=== PATIENT | male | born 1945 | race Hispanic/Latino ===

== ENCOUNTER 2017-01-11 11:08 | Emergency (ER) | payer MEDICARE ==
[2017-01-11 11:17] VITALS: TEMP 98
--- NOTE | 2017-01-11 12:45 | RAD ---
PROCEDURE: Right hand dated 01/11/2017 HISTORY: Right hand pain and swelling after fall. COMPARISON: Correlation made with concurrent radiographs of the right wrist FINDINGS: No definitive radiographic evidence of acute displaced fracture nor dislocation. The osseous structures intact. Minor degenerative changes of the DIP as well as PIP and to a lesser degree the MCP joints. There is a tiny bony density seen within the soft tissues adjacent to the distal tip of the radial styloid which could represent some old posttraumatic mineralization. There are no radiopaque foreign bodies. There may be some mild dorsal soft tissue swelling extending proximally to the level of the wrist. Impression: No definitive radiographic evidence of acute displaced fracture nor dislocation. . Mild soft tissue swelling as above Minor DJD
--- NOTE | 2017-01-11 12:49 | RAD ---
PROCEDURE: Right wrist dated 01/11/2017 HISTORY: Right hand pain and swelling after fall. COMPARISON: Correlation made with concurrent radiographs of the right hand FINDINGS: No definitive radiographic evidence of acute displaced fracture nor dislocation. The osseous structures intact. Re- demonstrated is a tiny bony density seen within the soft tissues adjacent to the distal tip of the radial styloid which could represent some old posttraumatic mineralization. There are no radiopaque foreign bodies. There may be some mild dorsal soft tissue swelling extending proximally to the level of the wrist. Impression: No definitive radiographic evidence of acute displaced fracture nor dislocation. . Mild soft tissue swelling as above Minor DJD if symptoms persist or occult fracture suspected clinically recommend repeat radiographs in 5-10 days as most fractures should become radiographically evident in this timeframe.
--- NOTE | 2017-01-11 12:55 | C.PDOC ---
History Of Present Illness 71 y/o male, with history of autism, brought in by family member for evaluation of right hand swelling and bruising. As per family member & patient, he fell and landed onto his right hand 2 days ago (details vague). He denies any other injury, and has no other physical complaints at this time. Time Seen by Provider: 01/11/17 11:18 Chief Complaint (Nursing): Finger,Hand,&Wrist History Per: Patient, Family History/Exam Limitations: no limitations Onset/Duration Of Symptoms: Days (2) Current Symptoms Are (Timing): Still Present Quality: "Pain" Severity: Moderate Recent travel outside of the [place]: No Additional History Per: Family Past Medical History Reviewed: Historical Data, Nursing Documentation, Vital Signs Vital Signs: Last Vital Signs Temp 98 F 01/11/17 11:17 Pulse 78 01/11/17 13:02 Resp 18 01/11/17 13:02 BP 126/75 01/11/17 13:02 Pulse Ox 98 01/11/17 14:21 - Medical History PMH: Seizures Family History: States: No Known Family Hx - Social History Hx Alcohol Use: No Hx Substance Use: No - Immunization History Hx Tetanus Toxoid Vaccination: Yes Hx Influenza Vaccination: Yes Hx Pneumococcal Vaccination: No Review Of Systems Except As Marked, All Systems Reviewed And Found Negative. Constitutional: Negative for: Fever, Chills Skin: Positive for: Bruising (swelling and bruising to right hand) Neurological: Negative for: Weakness, Numbness, Headache, Dizziness Physical Exam - Physical Exam Appears: Well, Non-toxic, No Acute Distress Skin: Normal Color, Warm, Dry, Ecchymosis (scattered ecchymosis to right hand; no erythema, or warmth) Head: Atraumatic, Normacephalic Eye(s): bilateral: Normal Inspection Chest: Symmetrical Cardiovascular: Rhythm Regular Respiratory: Normal Breath Sounds, No Rales, No Rhonchi, No Wheezing Extremity: Normal ROM (FROM of right hand digits and wrist), Tenderness (mild diffuse tenderness to palpatyion of right hand, no focal tenderness), Capillary Refill (< 2sec all digits ), No Deformity, Swelling (moderate swelling to right hand) Extremity: Bilateral: Normal ROM (at wrist and digits ) Pulses: Left Radial: Normal, Right Radial: Normal Neurological/Psych: Oriented x3, Normal Sensation Gait: Steady ED Course And Treatment O2 Sat by Pulse Oximetry: 98 (on RA) Pulse Ox Interpretation: Normal - Other Rad Right wrist x-ray X-Ray: Viewed By Me, Read By Radiologist Interpretation: FINDINGS: No definitive radiographic evidence of acute displaced fracture nor dislocation. The osseous structures intact. Re- demonstrated is a tiny bony density seen within the soft tissues adjacent to the distal tip of the radial styloid which could represent some old posttraumatic mineralization. There are no radiopaque foreign bodies. There may be some mild dorsal soft tissue swelling extending proximally to the level of the wrist. Impression: No definitive radiographic evidence of acute displaced fracture nor dislocation. . Mild soft tissue swelling as above Minor DJD if symptoms persist or occult fracture suspected clinically recommend repeat radiographs in 5-10 days as most fractures should become radiographically evident in this timeframe. Right hand x-ray X-Ray: Viewed By Me, Read By Radiologist Interpretation: FINDINGS: No definitive radiographic evidence of acute displaced fracture nor dislocation. The osseous structures intact. Minor degenerative changes of the DIP as well as PIP and to a lesser degree the MCP joints. There is a tiny bony density seen within the soft tissues adjacent to the distal tip of the radial styloid which could represent some old posttraumatic mineralization. There are no radiopaque foreign bodies. There may be some mild dorsal soft tissue swelling extending proximally to the level of the wrist. Impression: No definitive radiographic evidence of acute displaced fracture nor dislocation. Mild soft tissue swelling as above Minor DJD Progress Note: Right hand/right wrist x-ray ordered and reviewed. PO Tylenol ordered, however patient refused. Removable wrist splint applied by chemical waste management technician and checked by me. Patient discharged home with family, instructed to follow up with orthopedics within 1 week. Rx for Naprosyn given. They understand he should be brought back to ED if he has any other concerning symptoms. Disposition Counseled Patient/Family Regarding: Studies Performed, Diagnosis, Need For Followup, Rx Given - Disposition Referrals: Alexis Lynn [Primary Care Provider] - Lois Awad MD [Staff Provider] - Disposition: HOME/ ROUTINE Disposition Time: 13:00 Condition: STABLE Additional Instructions: FOLLOW UP WITH YOUR DOCTOR IN 1-2 DAYS, AND WITH HAND SURGEON WITHIN 1 WEEK USE PAIN MEDICATION NEEDED RETURN TO ER IF SYMPTOMS WORSEN Prescriptions: Naproxen [Naprosyn Tab] 375 mg PO BID PRN #20 tab PRN Reason: pain Instructions: Hand Sprain (ED) Print Language: SPANISH - POA Present On Arrival: Falls Or Trauma - Clinical Impression Clinical Impression: Sprain of hand, right, Contusion, hand - Scribe Statement The provider has reviewed the documentation as recorded by the Quinibe Robert Macedo All medical record entries made by the Quinibtrae were at my direction and personally dictated by me. I have reviewed the chart and agree that the record accurately reflects my personal performance of the history, physical exam, medical decision making, and the department course for this patient. I have also personally directed, reviewed, and agree with the discharge instructions and disposition.
[2017-01-11 13:04] VITALS: BP 126/75; PULSE 78; RESP 18
[2017-01-11 14:10] VITALS: O2SAT 98
== END 2017-01-11 13:05 | disposition home or self-care (01) ==
LOC: C.ER 11:08 → SUPCPDRO 11:08 → C.ER 13:05
DX: S60.221A Contusion of right hand, initial encounter (principal); S63.91XA Sprain of unspecified part of right wrist and hand, initial encounter; W19.XXXA Unspecified fall, initial encounter; Y92.9 Unspecified place or not applicable

== ENCOUNTER 2017-10-19 20:51 | Emergency (ER) | payer MEDICARE ==
[2017-10-19 21:03] VITALS: BP 134/73; PULSE 84; RESP 20; TEMP 97.5; O2SAT 98
--- NOTE | 2017-10-19 21:27 | C.PDOC ---
History Of Present Illness 72 yo male w/PMHx of seizure ds, come in accompanied by platform worker for evaluation of left hand/wrist and forearm pain, swelling, bruising developed since yesterday after sustained mechanical fall. As per pt, "tripped and fell down at home trying to break fall with left hand" . Otherwise, pt denies seizure activity, denies head injury, LOC, syncope, headache, dizziness, visual changes, focal deficits, neck pain, CP, SOB, dyspnea, abd. pain, N/V, back pain , denies sensory or vascular deficit to B/L Ues and LEs. Ambulate to Ed with baseline gait, no t in nay apparent distress. Time Seen by Provider: 10/19/17 21:09 Chief Complaint (Nursing): Upper Extremity Problem/Injury History Per: Patient History/Exam Limitations: no limitations Onset/Duration Of Symptoms: Hrs Current Symptoms Are (Timing): Still Present Quality: "Pain" Additional History Per: Patient Past Medical History Reviewed: Historical Data, Nursing Documentation, Vital Signs Vital Signs: Last Vital Signs Temp 97.5 F L 10/19/17 21:00 Pulse 84 10/19/17 21:00 Resp 20 10/19/17 22:50 BP 134/73 10/19/17 21:00 Pulse Ox 98 10/19/17 23:33 - Medical History PMH: Seizures Family History: States: Unknown Family Hx - Social History Hx Alcohol Use: No Hx Substance Use: No - Immunization History Hx Tetanus Toxoid Vaccination: Yes Hx Influenza Vaccination: Yes Hx Pneumococcal Vaccination: No Review Of Systems Eyes: Negative for: Vision Change Cardiovascular: Negative for: Chest Pain Respiratory: Negative for: Shortness of Breath, Other (dyspnea ) Gastrointestinal: Negative for: Nausea, Vomiting, Abdominal Pain Musculoskeletal: Positive for: Other (left hand/wrist and left forearm pain ). Negative for: Back Pain Neurological: Negative for: Weakness, Numbness, Seizures Physical Exam - Physical Exam Appears: Well, Non-toxic, No Acute Distress Skin: Normal Color, Warm, Dry Head: Atraumatic, Normacephalic Eye(s): bilateral: PERRL Nose: No Deformity, No Tenderness Oral Mucosa: Moist, No Drooling, No Trismus Neck: Trachea Midline, No Midline Cervical Tenderness, No Paracervical Tenderness, No Step Off Deformity, Supple Chest: Symmetrical, No Deformity, No Tenderness Gastrointestinal/Abdominal: Soft, No Tenderness Back: No Vertebral Tenderness, No Paraspinal Tenderness Extremity: Normal ROM, Tenderness (diffuse from dorsal aspect left hand extend t o left wrist and forearm), Capillary Refill (less than 2sec to left hand), Deformity (Left forearm), Swelling (diffuse left hand/wrist/forearm with diffuse ecchymoses.) Neurological/Psych: Oriented x3, Normal Speech, Normal Motor, Normal Sensation, Normal Reflexes ED Course And Treatment O2 Sat by Pulse Oximetry: 98 (on RA) Pulse Ox Interpretation: Normal - Other Rad Left hand and forearm X-Ray: Interpreted by Me, Viewed By Me Interpretation: (+) distal radial and ulnar fx, displaced Progress Note: Left forearm and left hand XR ordered and reviewed. Tylenol PO administered. On re-eval, pt is afebrile, hemodynamicaly stable. NOn-toxic. AMbulatory in ED with stable gait. Head: AT/NC. Neck: (-) midline tenderness. LUE: (+) diffuse Left dorsal hand/wristr and forearm tenderness with edema. NO neurovascular deficits, no open wounds. Neurologicaly intact. Imaging review (+) displaced distal radial/ulnar fx. Splint applied, analgesic given. Results review and discussed with pt and caregiver. Patient advised and ref. to f/u with ortho in 1-2 days for re-eval. return to ED if any worsening or new chnages. Orthopedic Time Performed: 22:00 Time Out: Side verified, Site verified, Patient ID confirmed Procedure: Splint Type: Volar Location: Left, Wrist Consent obtained: Verbal Performed by: Mid-level Provider Diagnosis: Fracture Type: Displaced, Angulated Location: Left, Distal Bone: Radius, Ulna Disposition Counseled Patient/Family Regarding: Studies Performed, Diagnosis, Need For Followup, Rx Given - Disposition Referrals: Ruddy Smith MD [Staff Provider] - Mesfin Duncan III, MD [Staff Provider] - Disposition: HOME/ ROUTINE Disposition Time: 22:02 Condition: STABLE Additional Instructions: SPlint, sling Follow up with Orthopedist in 1-2 days for re-evaluation. return to ED if any worsening or new changes. Prescriptions: traMADol [Ultram] 50 mg PO TID #14 tab Instructions: Wrist Fracture (DC) Forms: [employer] (Nauruan) - Clinical Impression Clinical Impression: Wrist fracture - PA / INDEPENDENT CONTRACTOR / Resident Statement MD/DO has reviewed & agrees with the documentation as recorded. - Scribe Statement The provider has reviewed the documentation as recorded by the Scribe All medical record entries made by the Scribe were at my direction and personally dictated by me. I have reviewed the chart and agree that the record accurately reflects my personal performance of the history, physical exam, medical decision making, and the department course for this patient. I have also personally directed, reviewed, and agree with the discharge instructions and disposition.
--- NOTE | 2017-10-20 11:22 | RAD ---
PROCEDURE: Left Hand Radiographs. HISTORY: Injury COMPARISON: Correlation made with concurrent radiographs of the left forearm. FINDINGS: BONES: Comminuted fracture of the distal left radius with volar angulation of the distal fragments. There is also a displaced fracture of the distal ulna styloid. JOINTS: Mild multi articular degenerative osteoarthritis SOFT TISSUES: Normal. OTHER FINDINGS: None. IMPRESSION: Comminuted displaced fracture distal left radius with volar angulation of the distal fragments. There is also displaced fracture of the distal ulna styloid
--- NOTE | 2017-10-20 11:24 | RAD ---
PROCEDURE: Radiographs of the Left Forearm HISTORY: Injury COMPARISON: Comparison made with concurrent radiographs of the left hand TECHNIQUE: Frontal and lateral views obtained. FINDINGS: BONES: Comminuted fracture of the distal radius with volar angulation of the distal fragment. There is also a mildly displaced fracture of the distal ulna styloid JOINT SPACES: . Mild multi articular degenerative osteoarthritis OTHER FINDINGS: None. IMPRESSION: Comminuted fracture of the distal radius with volar angulation of the distal fragment. There is also a mildly displaced fracture of the distal ulna styloid
== END 2017-10-19 22:50 | disposition home or self-care (01) ==
LOC: C.ER 20:51
DX: S52.502A Unspecified fracture of the lower end of left radius, initial encounter for closed fracture (principal); S52.602A Unspecified fracture of lower end of left ulna, initial encounter for closed fracture; W01.0XXA Fall on same level from slipping, tripping and stumbling without subsequent striking against object, initial encounter; Y92.009 Unspecified place in unspecified non-institutional (private) residence as the place of occurrence of the external cause

== ENCOUNTER 2018-01-18 15:50 | Inpatient (IN) | payer MEDICARE ==
--- NOTE | 2018-01-18 16:22 | C.PDOC ---
History Of Present Illness 72 year old male brought to the ER by brother for an evaluation of left arm injury sustained yesterday when he tripped and fell at home around 3pm. Per family he had a previous fracture in the same arm a couple months ago and he had a cast placed. He denies any numbness, weakness, or tingling. - HPI Time Seen by Provider: 01/18/18 16:03 Chief Complaint (Nursing): Trauma History Per: Patient, Family (Brother) History/Exam Limitations: physical impairment (mentally challenged) Onset/Duration Of Symptoms: Days Injury Occurred (Timing): Days Ago: (1) Location Of Injury: Left: Forearm, Wrist - Fall Fall:Prior To Injury: Tripped Past Medical History Reviewed: Historical Data, Nursing Documentation, Vital Signs Vital Signs: Last Vital Signs Temp 98 F 01/18/18 16:03 Pulse 93 H 01/18/18 16:03 Resp 18 01/18/18 16:03 BP 122/67 01/18/18 16:03 Pulse Ox 100 01/18/18 18:16 - Medical History PMH: Seizures Other PMH: mentally challenged Other Surgeries: Hx of surgeries Family History: States: No Known Family Hx - Social History Hx Alcohol Use: No Hx Substance Use: No - Immunization History Hx Tetanus Toxoid Vaccination: Yes Hx Influenza Vaccination: Yes Hx Pneumococcal Vaccination: No Review Of Systems Musculoskeletal: Positive for: Arm Pain (Left distal forearm/wrist) Neurological: Negative for: Weakness, Numbness Physical Exam - Physical Exam Appears: Non-toxic, No Acute Distress Skin: Warm, Dry, Ecchymosis (left wrist and hand), Other (2 round superficial abrasions to distal dorsal foream with surrounding erythema) Head: Atraumatic, Normacephalic Eye(s): bilateral: Normal Inspection Nose: Normal Oral Mucosa: Moist Neck: Normal ROM, Supple Chest: Symmetrical Cardiovascular: Rhythm Regular, No Murmur Respiratory: Normal Breath Sounds Extremity: Tenderness (Left wrist and distal forearm ), Capillary Refill (<2 seconds), Deformity (Left wrist and distal forearm ), Swelling (Left wrist and distal forearm ) Extremity: Right: Atraumatic, Normal Color And Temperature, Normal ROM Pulses: Left Radial: Normal, Right Radial: Normal Neurological/Psych: Oriented x3, Normal Speech, Normal Motor, Normal Sensation Gait: Steady ED Course And Treatment - Laboratory Results Result Diagrams: 01/18/18 17:44 01/18/18 17:44 ECG: Interpreted By Me, Viewed By Me ECG Rhythm: Sinus Rhythm ECG Interpretation: No Acute Changes Rate From EC (LVH) O2 Sat by Pulse Oximetry: 100 (RA) Pulse Ox Interpretation: Normal Medical Decision Making Medical Decision Making: Impression: Left wrist/distal forearm injury Orders - Tylenol - XR left forearm - XR left wrist Progress: [address] Cheung who previously took care of his fracture in September 2017. With patient's permission sent images of Xray. As per Dr Cheung recommended closed reduction, splint and can follow up in his office next week. I informed him that the arm is swollen, and fracture is complicated by previous fracture, swelling, and possible infection at wound site. He then stated he is not available this weekend, out of town and to consult ortho rn care transition. Case was discussed with DR Stewart ER attending who also examined patient at bedside. He recommended contacting ortho rn care transition, he will consult himself. 1715 Dr Stewart spoke with ortho rn care transition Dr Duncan, who requests patient be admitted have pre-op labs for medical clearance and CT of extremity. The plan is for OR and surgical repair in 1 or 2 days after clearance. Patient is very swollen and the family prefers patient have just splint applied until seen by ortho. Orthoglass volar splint applied by DEEPA. Arm sling applied by KEITH Aguirre. Orders placed for labs, EKG, CXR and CT of extremity. [address] Smith his PMD to discuss the case and accepted patient to his service. Ortho consult Dr Duncan. 181 Dr Smith in ED to see patient, and accepted patient to his service. Disposition - Disposition Disposition: HOSPITALIZED Disposition Time: 17:57 Condition: STABLE - POA Present On Arrival: Falls Or Trauma - Clinical Impression Clinical Impression: Radius and ulna distal fracture - PA / SHACTOR / Resident Statement MD/DO has reviewed & agrees with the documentation as recorded. - Scribe Statement The provider has reviewed the documentation as recorded by the Qiunibe Sandra Frazier All medical record entries made by the Scribe were at my direction and personally dictated by me. I have reviewed the chart and agree that the record accurately reflects my personal performance of the history, physical exam, medical decision making, and the department course for this patient. I have also personally directed, reviewed, and agree with the discharge instructions and disposition. Decision To Admit - Pt Status Changed To: Hospital Disposition Of: Inpatient - Admit Certification Admit to Inpatient:: After my assessment, the patient will require hospitalization for at least two midnights. This is because of the severity of symptoms shown, intensity of services needed, and/or the medical risk in this patient being treated as an outpatient. - InPatient: Physician Admission Certification: I certify that this patient requires 2 or more midnights of care for the following reason:: Patient with acute and displaced fracture of the distal ulna and radius, complicated by prior fracture to same wrist 3 months prior. Patient will need surgical repair. Patient is very swollen and reduction not feasible. Plan is to admit to medical service. Patient will require pre-op labs and medical clearance. Ice and elevation of extremity. Analgesics as needed. - . Bed Request Type: Regular Admitting Physician: Ruddy Smith Patient Diagnosis: Radius and ulna distal fracture
[2018-01-18 17:48] LABS: BASO # 0.1 K/uL (0.0-0.2); BASO % 0.6 % (0.0-2.0); EOS # 0.1 K/uL (0.0-0.7); EOS % 0.9 % (0.0-4.0); HEMOGLOBIN 13.3 g/dL (12.0-18.0); LYMPH % 11.1 % (20.0-40.0); MEAN CORPUSCULAR HEMOGLOBIN 30.9 pg (27.0-31.0); MEAN CORPUSCULAR HGB CONC 33.5 g/dL (33.0-37.0); MEAN PLATELET VOLUME 6.9 fL (7.2-11.7); MONO # 1.4 K/uL (0.0-0.8); MONO % 16.3 % (0.0-10.0); NEUT # 6.3 K/uL (1.8-7.0); NEUT % 71.1 % (50.0-75.0); RBC 4.3 Mil/uL (4.40-5.90); RED CELL DISTRIBUTION WIDTH 13.9 % (11.5-14.5); WHITE BLOOD COUNT 8.8 K/uL (4.8-10.8)
[2018-01-18] MEDS ORDERED: Morphine 4 MG/ML VIAL ONE (17:49)
[2018-01-18] MEDS ORDERED: Sodium Chloride 0.9% 1,000 ML IV ONE (17:54)
[2018-01-18 18:07] LABS: ALB/GLOB RATIO 1.6 (1.0-2.1); ALBUMIN 4.4 g/dL (3.5-5.0); ALT/SGPT 26 U/L (21-72); AST/SGOT 23 U/L (17-59); BLOOD UREA NITROGEN 14 mg/dL (9-20); CALCIUM 9.6 mg/dl (8.6-10.4); GFR AFRICAN-AMERICAN > 60; GFR NON-AFRICAN AMERICAN > 60; INR 1.2; PROTHROMBIN TIME 12.9 SECONDS (9.7-12.2)
[2018-01-18] MEDS ORDERED: Sodium Chloride 0.9% 1,000 ML ONE (18:07)
--- NOTE | 2018-01-18 18:15 | RAD ---
Date of service: 01/18/2018 PROCEDURE: Radiographs of the Left Forearm HISTORY: s.p fall COMPARISON: None available. TECHNIQUE: Frontal and lateral views obtained. FINDINGS: BONES: There are acute comminuted and displaced fractures at the distal left radius and ulna associated with volar angulation of the distal portion of the bone. JOINT SPACES: Unremarkable. OTHER FINDINGS: None. IMPRESSION: Acute comminuted and displaced fractures at the distal left radius and ulnar bones.
--- NOTE | 2018-01-18 18:17 | RAD ---
Date of service: 01/18/2018 PROCEDURE: Left Wrist Radiographs. HISTORY: s.p fall COMPARISON: None. FINDINGS: BONES: Acute comminuted and displaced fracture at the distal left radius and ulna. No evidence of carpal bone fracture. JOINTS: Degenerative changes. . No dislocation. SOFT TISSUES: Normal. OTHER FINDINGS: None. IMPRESSION: Acute displaced fracture at the distal left radius and ulnar bone without evidence of dislocation at the radiocarpal joint.
--- NOTE | 2018-01-18 18:22 | RAD ---
Date of service: 01/18/2018 PROCEDURE: CHEST RADIOGRAPH, 1 VIEW HISTORY: SOB COMPARISON: None available. FINDINGS: LUNGS: Emphysematous changes. No evidence of focal infiltrate or consolidation. PLEURA: No pneumothorax or pleural fluid seen. CARDIOVASCULAR: Normal. OSSEOUS STRUCTURES: No significant abnormalities. VISUALIZED UPPER ABDOMEN: Normal. OTHER FINDINGS: None. IMPRESSION: No active disease. Emphysematous changes.
--- NOTE | 2018-01-18 23:52 | CP.PCM.HP ---
History of Present Illness - History of Present Illness History of Present Illness: 72 yo male brought by his brother to the ED at [facility] because of a swollen and tender left wrist from a fall had sustained yesterday. An XR of the left wrist discloses comminuted and displaced fractures of the distal radius and ulna. According to the family, the patient felt 3 months ago and sustained a left wrist fracture which was treated with a cast. There is no palpitation, dizziness, chest pain, no LOC. 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 He has not had seizures for a very long time. He is scheduled for surgery on Saturday by Dr Duncan. Present on Admission - Present on Admission Any Indicators Present on Admission: No Review of Systems - Musculoskeletal Additional comments: Swelling and tender left wrist. Past Patient History - Past Medical History & Family History Past Medical History?: Yes - Past Social History Smoking Status: Never Smoked Alcohol: None Drugs: Denies Home Situation {Lives}: With Family Domestic Violence: Negative - CARDIAC Hx Cardiac Disorders: No - PULMONARY Hx Respiratory Disorders: No - NEUROLOGICAL Hx Neurological Disorder: Yes Hx Seizures: Yes - HEENT Hx HEENT Problems: No - RENAL Hx Chronic Kidney Disease: No - ENDOCRINE/METABOLIC Hx Endocrine Disorders: No - HEMATOLOGICAL/ONCOLOGICAL Hx Blood Disorders: No - INTEGUMENTARY Hx Dermatological Problems: No - MUSCULOSKELETAL/RHEUMATOLOGICAL Hx Musculoskeletal Disorders: No Hx Falls: Yes Hx Fractures: Yes - GASTROINTESTINAL Hx Gastrointestinal Disorders: No - GENITOURINARY/GYNECOLOGICAL Hx Genitourinary Disorders: No - PSYCHIATRIC Hx Substance Use: No - SURGICAL HISTORY Hx Surgeries: Yes Other/Comment: left arm fx - ANESTHESIA Hx Anesthesia: No Hx Anesthesia Reactions: No Hx Malignant Hyperthermia: No Has any member of the family had a problem w/ anesthesia?: No Meds Allergies/Adverse Reactions: Allergies Allergy/AdvReac Type Severity Reaction Status Date / Time No Known Allergies Allergy Verified 10/19/17 21:02 Physical Exam - Constitutional Appears: Well, No Acute Distress - Head Exam Head Exam: NORMAL INSPECTION - Eye Exam Eye Exam: Normal appearance Pupil Exam: NORMAL ACCOMODATION - ENT Exam ENT Exam: Normal Exam - Neck Exam Neck exam: Positive for: Normal Inspection - Respiratory Exam Respiratory Exam: Clear to Auscultation Bilateral, NORMAL BREATHING PATTERN - Cardiovascular Exam Cardiovascular Exam: REGULAR RHYTHM - GI/Abdominal Exam GI & Abdominal Exam: Normal Bowel Sounds, Soft - Rectal Exam Rectal Exam: Deferred - Exam Exam: NORMAL INSPECTION - Extremities Exam Additional comments: Swollen and tender left wrist. - Back Exam Back exam: NORMAL INSPECTION - Neurological Exam Neurological exam: Alert, Normal Gait, Oriented x3 - Psychiatric Exam Psychiatric exam: Anxious - Skin Skin Exam: Dry, Intact, Warm Results - Vital Signs Recent Vital Signs: Last Vital Signs Temp 97.9 F 01/18/18 19:33 Pulse 82 01/18/18 19:33 Resp 18 01/18/18 19:33 BP 135/72 01/18/18 19:33 Pulse Ox 97 01/18/18 19:33 - Labs Result Diagrams: 01/18/18 17:44 01/18/18 17:44 Labs: Laboratory Results - last 24 hr 01/18/18 01/18/18 01/18/18 17:44 17:44 17:44 WBC 8.8 RBC 4.30 L Hgb 13.3 Hct 39.6 MCV 92.0 MCH 30.9 MCHC 33.5 RDW 13.9 Plt Count 227 MPV 6.9 L Neut % (Auto) 71.1 Lymph % (Auto) 11.1 L Kings % (Auto) 16.3 H Eos % (Auto) 0.9 Baso % (Auto) 0.6 Neut # (Auto) 6.3 Lymph # (Auto) 1.0 Kings # (Auto) 1.4 H Eos # (Auto) 0.1 Baso # (Auto) 0.1 PT 12.9 H INR 1.2 APTT 29 Sodium 142 Potassium 4.0 Chloride 102 Carbon Dioxide 29 Anion Gap 15 BUN 14 Creatinine 0.7 L Est GFR ( Amer) > 60 Est GFR (Non-Af Amer) > 60 Random Glucose 119 H Calcium 9.6 Total Bilirubin 1.7 H AST 23 ALT 26 Alkaline Phosphatase 92 Total Protein 7.1 Albumin 4.4 Globulin 2.7 Albumin/Globulin Ratio 1.6 Blood Type Antibody Screen 01/18/18 17:44 WBC RBC Hgb Hct MCV MCH MCHC RDW Plt Count MPV Neut % (Auto) Lymph % (Auto) Kings % (Auto) Eos % (Auto) Baso % (Auto) Neut # (Auto) Lymph # (Auto) Kings # (Auto) Eos # (Auto) Baso # (Auto) PT INR APTT Sodium Potassium Chloride Carbon Dioxide Anion Gap BUN Creatinine Est GFR ( Amer) Est GFR (Non-Af Amer) Random Glucose Calcium Total Bilirubin AST ALT Alkaline Phosphatase Total Protein Albumin Globulin Albumin/Globulin Ratio Blood Type O POSITIVE Antibody Screen Negative Assessment & Plan (1) Radius and ulna distal fracture Assessment and Plan: For surgery on Saturday, Status: Acute (2) History of seizures Status: Acute (3) History of seizures Assessment and Plan: to continue Keppra 250 mg PO BID. Status: Chronic Decision To Admit - Pt Status Changed To: Hospital Disposition Of: Inpatient - Admit Certification Admit to Inpatient:: After my assessment, the patient will require hospitalization for at least two midnights. This is because of the severity of symptoms shown, intensity of services needed, and/or the medical risk in this patient being treated as an outpatient. - InPatient: Physician Admission Certification:: After my assessments, the patient requires hospitalization for at least wo midnights. - . Bed Request Type: Regular Admitting Physician: Ruddy Smith
[2018-01-19] MEDS ORDERED: Enoxaparin 40 mg Syringe SC SCH (10:00)
--- NOTE | 2018-01-19 11:39 | CT ---
Date of service: 01/18/2018 PROCEDURE: CT of the left upper extremity without contrast HISTORY: left wrist fracture deformity COMPARISON: Comparison is made with the previous x-ray of the left wrist dated 01/18/2018 TECHNIQUE: Axial and reformatted coronal and sagittal CT images of the left upper extremity were obtained without IV contrast administration. 3D reformatted images of the left wrist and hand were also obtained. Total exam DLP 241.32. FINDINGS: There are distracted comminuted and displaced fractures at the distal left radius and ulna again noted. The reconstructed sagittal images demonstrate large displacement and angulation of the distal portion of the left radius and ulnar bone at the fracture site. There are also multiple bony fragments seen. There is displaced fracture at styloid process of the ulnar bone. No evidence of dislocation at the radiocarpal joint. No evidence of carpal bone fracture. Diffuse soft tissue edema and posttraumatic changes noted at the distal left forearm and at the left wrist. Heterogeneous density of the osseous structure noted and the possibility of mild osteoporotic changes cannot be totally excluded. IMPRESSION: Comminuted distracted and displaced fracture at the distal radius and ulnar with volar angulation noted. Displaced acute fracture at the ulnar styloid process. Moderate soft tissue edema and posttraumatic changes at the distal left forearm and left wrist. Preliminary report was submitted by [facility].
--- NOTE | 2018-01-19 13:34 | CP.PCM.CON ---
History of Present Illness - History of Present Illness History of Present Illness: ID: 72 yo male CC: Pain and SEVERE deformity Left wrist HPI_ 72 yo male with prior cognitive disability,presents with pain and restricted ROM R wrist after a fallo on outstretched Left upper extremity. PT woith hx of cognitive disability of unknown etiology. Pt presents tro ER at [facility] with severe pain and deformity of the Left wrist Pt admitted after eval by Dr Stewart. Pt with decreased sensation first 3 fingers L hand, and pt with evidence of post traumatic carpal tunnel syndrome Left wrist. On converstaion over the phone with his Karen coe, it is defined that pt has cognitive disability, etiology unknown(foirgive the expression, but the mother states Dane is "retarded"). Thius is not my descripiton, since i find that characterization offensive. In any event the mother gives consent for the ORIF of the displaced/comminuted distal radius fracture. Past Patient History - Past Medical History & Family History Past Medical History?: Yes - Past Social History Smoking Status: Never Smoked Alcohol: None Drugs: Denies Home Situation {Lives}: With Family Domestic Violence: Negative - CARDIAC Hx Cardiac Disorders: No - PULMONARY Hx Respiratory Disorders: No - NEUROLOGICAL Hx Neurological Disorder: Yes Hx Seizures: Yes - HEENT Hx HEENT Problems: No - RENAL Hx Chronic Kidney Disease: No - ENDOCRINE/METABOLIC Hx Endocrine Disorders: No - HEMATOLOGICAL/ONCOLOGICAL Hx Blood Disorders: No - INTEGUMENTARY Hx Dermatological Problems: No - MUSCULOSKELETAL/RHEUMATOLOGICAL Hx Musculoskeletal Disorders: No Hx Falls: Yes Hx Fractures: Yes - GASTROINTESTINAL Hx Gastrointestinal Disorders: No - GENITOURINARY/GYNECOLOGICAL Hx Genitourinary Disorders: No - PSYCHIATRIC Hx Substance Use: No - SURGICAL HISTORY Hx Surgeries: Yes Other/Comment: left arm fx - ANESTHESIA Hx Anesthesia: No Hx Anesthesia Reactions: No Hx Malignant Hyperthermia: No Has any member of the family had a problem w/ anesthesia?: No Meds Allergies/Adverse Reactions: Allergies Allergy/AdvReac Type Severity Reaction Status Date / Time No Known Allergies Allergy Verified 10/19/17 21:02 - Medications Medications: Current Medications Acetaminophen (Tylenol 325mg Tab) 650 mg PO Q6 PRN PRN Reason: Pain, moderate (4-7) Docusate Sodium (Colace) 100 mg PO BID [facility] Last Admin: 01/19/18 09:54 Dose: 100 mg Enoxaparin Sodium (Lovenox) 40 mg SC DAILY [facility] Last Admin: 01/19/18 09:54 Dose: 40 mg Levetiracetam (Keppra) 250 mg PO BID [facility] Last Admin: 01/19/18 09:54 Dose: 250 mg Physical Exam - Additional Findings Additional findings: Physiucal exam systemic exam constituional- pt exhibits evidece for "cognitive disability" remainder systemic exam as per Dr Smith Musculoskeltal stance/gait- defrred pt with deforkmity and restroicted RPOM wrist L splint intact Neuro exam- reveals decreased senstaion first 3 fingers of L hand sploint intact Results - Vital Signs Recent Vital Signs: Last Vital Signs Temp 98.1 F 01/19/18 07:55 Pulse 81 01/19/18 07:55 Resp 18 01/19/18 07:55 BP 111/74 01/19/18 07:55 Pulse Ox 98 01/19/18 07:55 - Labs Result Diagrams: 01/18/18 17:44 01/18/18 17:44 Labs: Laboratory Results - last 24 hr 01/18/18 01/18/18 01/18/18 17:44 17:44 17:44 WBC 8.8 RBC 4.30 L Hgb 13.3 Hct 39.6 MCV 92.0 MCH 30.9 MCHC 33.5 RDW 13.9 Plt Count 227 MPV 6.9 L Neut % (Auto) 71.1 Lymph % (Auto) 11.1 L Elbert % (Auto) 16.3 H Eos % (Auto) 0.9 Baso % (Auto) 0.6 Neut # (Auto) 6.3 Lymph # (Auto) 1.0 Elbert # (Auto) 1.4 H Eos # (Auto) 0.1 Baso # (Auto) 0.1 PT 12.9 H INR 1.2 APTT 29 Sodium 142 Potassium 4.0 Chloride 102 Carbon Dioxide 29 Anion Gap 15 BUN 14 Creatinine 0.7 L Est GFR ( Amer) > 60 Est GFR (Non-Af Amer) > 60 Random Glucose 119 H Calcium 9.6 Total Bilirubin 1.7 H AST 23 ALT 26 Alkaline Phosphatase 92 Total Protein 7.1 Albumin 4.4 Globulin 2.7 Albumin/Globulin Ratio 1.6 Blood Type Antibody Screen 01/18/18 17:44 WBC RBC Hgb Hct MCV MCH MCHC RDW Plt Count MPV Neut % (Auto) Lymph % (Auto) Elbert % (Auto) Eos % (Auto) Baso % (Auto) Neut # (Auto) Lymph # (Auto) Elbert # (Auto) Eos # (Auto) Baso # (Auto) PT INR APTT Sodium Potassium Chloride Carbon Dioxide Anion Gap BUN Creatinine Est GFR ( Amer) Est GFR (Non-Af Amer) Random Glucose Calcium Total Bilirubin AST ALT Alkaline Phosphatase Total Protein Albumin Globulin Albumin/Globulin Ratio Blood Type O POSITIVE Antibody Screen Negative - Impressions Impression: Imaging Xrays reveal evidec eof prior distal radius fx with severe angulation of L distal Radius CT exam is confirmatory- severely displaced and angulated dista;l radius fx/ ulna fx Assessment & Plan - Assessment and Plan (Free Text) Assessment: A- 1) displaced/angulated distal radius fracture/ distal ulna fracture-Left 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 CASE DISCUSSED AT LENGTH WITH PTS MOTHER WHOI RENDERS INFORMED CONSENT
[2018-01-19 16:17] VITALS: RESP 20
[2018-01-19 23:03] LABS: BASO # 0.1 K/uL (0.0-0.2); BASO % 1.3 % (0.0-2.0); EOS # 0.1 K/uL (0.0-0.7); EOS % 1.7 % (0.0-4.0); HEMOGLOBIN 14.1 g/dL (12.0-18.0); LYMPH # 1.4 K/uL (1.0-4.3); LYMPH % 19.5 % (20.0-40.0); MEAN CELL VOLUME 92.2 fL (80.0-94.0); MEAN CORPUSCULAR HEMOGLOBIN 31.6 pg (27.0-31.0); MEAN CORPUSCULAR HGB CONC 34.3 g/dL (33.0-37.0); MEAN PLATELET VOLUME 7.4 fL (7.2-11.7); MONO # 1.1 K/uL (0.0-0.8); MONO % 15.1 % (0.0-10.0); NEUT # 4.5 K/uL (1.8-7.0); NEUT % 62.4 % (50.0-75.0); RBC 4.44 Mil/uL (4.40-5.90); RED CELL DISTRIBUTION WIDTH 13.9 % (11.5-14.5); WHITE BLOOD COUNT 7.2 K/uL (4.8-10.8)
[2018-01-20 11:53] LABS: HEMOGLOBIN 14.5 g/dL (12.0-18.0); MEAN CELL VOLUME 92.1 fL (80.0-94.0); MEAN CORPUSCULAR HEMOGLOBIN 31.3 pg (27.0-31.0); MEAN PLATELET VOLUME 7.5 fL (7.2-11.7); RBC 4.62 Mil/uL (4.40-5.90); WHITE BLOOD COUNT 6.3 K/uL (4.8-10.8)
[2018-01-20 11:55] LABS: INR 1.1; PROTHROMBIN TIME 12.3 SECONDS (9.7-12.2)
[2018-01-20] MEDS ORDERED: Midazolam 2 MG/2 ML VIAL ONE (12:50)
[2018-01-20] MEDS ORDERED: Propofol 10 mg/ml Inj (20 ML) ONE (12:50)
[2018-01-20] MEDS ORDERED: ePHEDrine 50 mg/ml Inj ONE (13:46)
[2018-01-20] MEDS ORDERED: ceFAZolin IV 1 gm in Dextrose 1 GM/50 ML BAG IVPB ONE (13:51)
[2018-01-20] MEDS ORDERED: Oxycodone/Acetaminophen 5/325 mg Tab PO PRN (15:51)
[2018-01-20] MEDS ORDERED: Lactated Ringer's 1,000 ML IV SCH (16:00)
[2018-01-20] MEDS ORDERED: HYDROmorphone 0.5 mg/0.5 ml ISec IVP PRN (16:07)
--- NOTE | 2018-01-20 16:24 | RAD ---
Date of service: 01/20/2018 PROCEDURE: Left Wrist Radiographs. HISTORY: s/p L distal radius ORIF COMPARISON: Left wrist radiographs dated 01/18/2018. FINDINGS: Distal left upper extremity cast is now present limiting evaluation of fine bony detail. There has been interval open reduction internal plate and screw fixation of the previously described distal radial fracture now seen with improved anatomic alignment. There is persistent volar dislocation of the distal ulna with persistent displacement of the ulnar styloid. IMPRESSION: Interval ORIF of the distal radial fracture. Persistent volar dislocation of the distal ulna.
--- NOTE | 2018-01-20 16:37 | PCM.SURG1 ---
Surgeon's Initial Post Op Note - Surgeon's Notes Surgeon: Perla Field Operations Manager: 1st assist JONATHAN Thomas/ 2nd assist Alexy Hernández, MS 3 Type of Anesthesia: General Endo Anesthesia Administered By: DR Garcia Pre-Operative Diagnosis: displaced/angulated malunion distal radius/ ulna fracture. post traumatic carpal tunnel syndrome Operative Findings: displaced/angulated distal radius fx nonunion/malunion. post traumatic carpal tunnel syndrome Post-Operative Diagnosis: as above Operation Performed: osteotomy distal radius. ORIF displaced/sevrely angulated and displaced nonunion/malunion distal radius fx. release carpal tunnel. partial median neurolysis. partial flexor tenosynovectomy. autograft/ allograft bone graft. applx volar splint. positioning of fluoro/interp[ retation of video images Specimen/Specimens Removed: bone/cartialge/synovium Estimated Blood Loss: EBL {In ML}: 10 Blood Products Given: N/A Drains Used: No Drains Post-Op Condition: Fair Date of Surgery/Procedure: 01/20/18 Time of Surgery/Procedure: 14:35 ([id number])
--- NOTE | 2018-01-20 17:21 | CP.PCM.PCO ---
Physician Communication Note - Physician Communication Note Physician Communication Note: Patient is orthopedically stable for discharge
--- NOTE | 2018-01-20 17:32 | RAD ---
Date of service: 01/20/2018 PROCEDURE: Intraoperative Fluoroscopy. HISTORY: LEFT WRIST FX FINDINGS: Fluoroscopic assistance was provided for open reduction internal fixation. Dose report: DLP 0.005 (mGy/ m2): Please refer to the operative report from [facility]. Total fluoroscopic time (continuous mode) utilized during the procedure 3.4 (seconds). Submitted images from the current procedure: 3.0
[2018-01-20 22:47] LABS: SQUAMOUS EPITHIAL 1 /hpf (0-5); URINE BACTERIA OCC (<OCC); URINE BILIRUBIN NEGATIVE (NEGATIVE); URINE BLOOD NEGATIVE (NEGATIVE); URINE CALCIUM OXALATE CRYSTALS RARE /hpf (<OCC); URINE CLARITY Clear (Clear); URINE COLOR Yellow (YELLOW); URINE GLUCOSE (UA) NORMAL (Normal); URINE LEUKOCYTE ESTERASE NEG Leu/uL (Negative); URINE PROTEIN NEGATIVE (NEGATIVE); URINE UROBILINOGEN NORMAL mg/dL (0.2-1.0)
--- NOTE | 2018-01-21 07:47 | CP.PCM.PN ---
Subjective - Date & Time of Evaluation Date of Evaluation: 01/21/18 Time of Evaluation: 07:47 - Subjective Subjective: Patient seen and examined at bedside comfortable. Pain well controlled. No acute events overnight. Objective - Vital Signs/Intake and Output Vital Signs (last 24 hours): Temp Pulse Resp BP Pulse Ox 97.6 F 98 H 20 108/66 98 01/20/18 23:40 01/20/18 23:40 01/20/18 23:40 01/20/18 23:40 01/20/18 23:40 Intake and Output: 01/21/18 01/21/18 06:59 18:59 Intake Total 600 Output Total 250 Balance 350 - Medications Medications: Current Medications Acetaminophen (Tylenol 325mg Tab) 650 mg PO Q6 PRN PRN Reason: Pain, moderate (4-7) Docusate Sodium (Colace) 100 mg PO BID [facility] Last Admin: 01/20/18 17:34 Dose: 100 mg Lactated Ringer's (Lactated Ringer's) 1,000 mls @ 100 mls/hr IV .Q10H [facility] Last Admin: 01/21/18 01:26 Dose: 100 mls/hr Levetiracetam (Keppra) 250 mg PO BID [facility] Last Admin: 01/20/18 17:34 Dose: 250 mg Morphine Sulfate (Morphine) 2 mg IVP Q4H PRN PRN Reason: Pain, severe (8-10) Ondansetron HCl (Zofran Inj) 4 mg IVP DAILY@ONCE PRN PRN Reason: Nausea/Vomiting Oxycodone/Acetaminophen (Percocet 5/325 Mg Tab) 2 tab PO Q4H PRN PRN Reason: Pain, moderate (4-7) Stop: 01/23/18 15:52 - Labs Labs: 01/20/18 11:30 01/18/18 17:44 PT 12.3 SECONDS (9.7-12.2) H 01/20/18 11:30 INR 1.1 01/20/18 11:30 APTT 30 SECONDS (21-34) 01/20/18 11:30 - Extremities Exam Additional comments: L wrist: splint/dressings CDI, elevated by IV pole sensation intact MN/UN/RN motor intact MN/UN/RN cap refill 2 sec all fingers Assessment and Plan (1) Radius and ulna distal fracture Assessment & Plan: POD# 1 s/p L distal radius/ulna fx ORIF, carpal tunnel release -pain control -NWB LUE -elevate LUE -sling upon d/c -orthopedically stable for discharge -above d/w Dr. Duncan in agreement Status: Acute
[2018-01-21 07:51] VITALS: BP 136/67; PULSE 103; TEMP 98.1; O2SAT 100
--- NOTE | 2018-01-21 14:42 | CARD ---
APPROVED REPORT Date of service: 01/18/2018 EKG Measurement Heart [id number] CT [id number] <Conclusion> Normal sinus rhythm Moderate voltage criteria for LVH, may be normal variant Borderline ECG
--- NOTE | 2018-01-23 06:44 | OP ---
Copied To: Mesfin Duncan MD Attending MD: Mesfin Duncan MD PROCEDURE DATE: 01/20/2018 PREOPERATIVE DIAGNOSES: Displaced angulated malunion, nonunion distal radius fracture left, ulnar fracture, and posttraumatic carpal tunnel syndrome. OPERATIVE FINDINGS: 1. Displaced angulated distal radius fracture, nonunion, and malunion. 2. Angulated ulnar fracture, malunion, and nonunion. 3. Posttraumatic carpal tunnel syndrome. POSTOPERATIVE DIAGNOSES: Displaced angulated malunion, nonunion distal radius fracture, ulnar fracture, and posttraumatic carpal tunnel syndrome. OPERATIONS PERFORMED: 1. Osteotomy of the distal radius. 2. Open reduction internal fixation of displaced severely angulated and displaced nonunion, malunion, distal radius fracture. 3. Release of transverse carpal tunnel ligament. 4. Partial medial neurolysis. 5. Partial flexor tenosynovectomy. 6. Autograft, allograft bone graft. 7. Application of volar splint. 8. Application and positioning of fluoroscope and interpretation of video images. 9. Closed reduction and manipulation of the ulnar fracture nonunion, malunion. SURGEON: Mesfin Duncan MD LANGUAGE INTERPRETER: JULES Aviles, certified registered nursing infertility medical assistant. 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 ANESTHESIA: General endotracheal anesthesia. ANESTHESIOLOGIST: Glen Bowman MD. COMPLICATIONS: None. DRAINS: Nonne. BLOOD LOSS: Approximately 10 mL. BLOOD PRODUCTS: No blood products given. POSTOPERATIVE CONDITION: Stable/fair. TIME OF THE SURGERY: 14:35. TIME IN THE ROOM: 13:30. OPERATIVE PROCEDURE: After thoroughly discussing the pros, cons, risks, and benefits of the procedure with the patient's brother, it was clear that the patient has a cognitive impairment, which was confirmed by his mother and his brother so the informed consent was obtained from the brother. Pros, cons, risks, and benefits of the surgical approach were discussed, possibility of mechanical failure, infection, stiffness, nerve injury, thromboembolic disease, and secondary and tertiary surgeries were discussed. The concept that the patient may later need a osteotomy was discussed. It should be noted that the patient has multiple comorbidities, so the object is to most effectively and rapidly correct the problem at hand, which is the distal radial nonunion, malunion and the carpal tunnel syndrome posttraumatic. It should be noted that the patient had a fracture of the distal radius three months ago and that fracture was treated conservatively by Dr. Cheung, unfortunately in an improper position. The possibility of mechanical failure, infection, thromboembolic disease, and secondary and tertiary surgery had been discussed at length. DESCRIPTION OF PROCEDURE: After having obtained informed consent, after having identified the side, site, and procedure, which was essentially the left wrist, after the satisfactory induction of the anesthetic, after having obtained informed consent from the patient's brother, after having identified the side, site, and procedure in a critical pause/timeout, the patient identified as Dane Guerrero was placed in supine position. All bony prominences were well padded. The left upper extremity was prepped and free draped in the usual fashion for upper extremity surgery. The tourniquet having been applied under the surgeon's direction, fluoroscope was positioned. Video images were generated and therapeutic decisions were made therefrom. This having been accomplished the left upper extremity was exsanguinated using 3-inch Esmarch bandage. The tourniquet which had been applied was inflated to 250 mmHg. The operation was performed under loop magnification control. This having been accomplished with the fluoroscope having been positioned, the incision was accomplished in the straight midline approach deviating radially at the distal previous deviating back proximally in the interval between the flexor carpi radialis and the palmaris longus tendon. This interval was developed. The skin incision was carried down through the skin and subcutaneous tissue. It should be noted that the progression of the incision is very-very careful since because of malunion, the radius was very-very volar and tenting the skin and actually that was one of the emergent problems. Again, the patient has multiple comorbidities, so the object was to fix the radius fracture in an acceptable position. The patient has cognitive disabilities. The incision having been carried down, the interval having been developed between the flexi carpi radialis, the palmaris longus, and the transverse carpal tunnel is entirely divided. The underlying median nerve was compressed. The entire transverse carpal ligament was released. A careful partial flexor tenosynovectomy was accomplished. Careful partial flexor tenosynovectomy was accomplished as well as a partial median neurolysis. This having been accomplished the fracture at this point in time, the pronator teres was carefully divided. Great care was taken to avoid injury to the anterior interosseous branch of the median nerve. The fracture was thus identified. There was found to be established malunion, nonunion, and this healing callus was excised using a combination of 0.25 inch curved osteotome and the rongeur. This having been accomplished, a radial osteotomy was accomplished using a small oscillating saw and the radial osteotomy was accomplished on both the proximal fragment, distal aspect, and the proximal aspect of the distal fragment. This having been accomplished, the fractures thus reduced, the ulnar fractures manipulated into an improved position, but again in the interest of brevity and shortening the procedure because of the patient's comorbidities to get the patient off the table, the radial fracture was addressed. The radius fracture was reduced and was found to be in acceptable position. The locking bone holding clamp was applied to the distal aspect of the radius so as not to interfere with the joint. The sequential drill hole was drilled, drilled in the appropriate size locking screws placed, and the position was found to be acceptable. Under the surgeon's direction, the fluoroscope was positioned, Video images were generated and therapeutic decisions were made therefrom. This having been accomplished, the position having been found to be excellent, a combination of the autograft and allograft bone graft was applied to the fracture site after the osteotomy. It should be noted that an osteotomy of the distal radius had been planned and executed according to the malunion and nonunion of the distal radial fracture. The wound was thoroughly irrigated. The carpal tunnel was completely released. The careful partial medial neurolysis was accomplished and partial flexor tenosynovectomy was accomplished. The wound was thoroughly irrigated. The ulnar fracture was manipulated and closed using layers with interrupted Vicryl and ron and nylon for the skin. Raj Wilder compression dressing and volar splint were applied. Intraarticular injection was offered. Mesfin Duncan MD
--- NOTE | 2018-01-23 09:38 | CP.PCM.DIS ---
Provider - Provider Date of Admission: 01/18/18 17:57 Attending physician: Ruddy Smith MD Primary care physician: Ruddy Smith M.D. Consults: Dr Duncan ( orthopedist ). Time Spent in preparation of Discharge (in minutes): 30 Diagnosis - Discharge Diagnosis (1) Radius and ulna distal fracture Status: Acute (2) History of seizures Status: Chronic (3) History of seizures Status: Chronic Hospital Course - Lab Results Lab Results: Most Recent Lab Values WBC 6.3 K/uL (4.8-10.8) 01/20/18 11:30 RBC 4.62 Mil/uL (4.40-5.90) 01/20/18 11:30 Hgb 14.5 g/dL (12.0-18.0) 01/20/18 11:30 Hct 42.6 % (35.0-51.0) 01/20/18 11:30 MCV 92.1 fL (80.0-94.0) 01/20/18 11:30 MCH 31.3 pg (27.0-31.0) H 01/20/18 11:30 MCHC 34.0 g/dL (33.0-37.0) 01/20/18 11:30 RDW 14.0 % (11.5-14.5) 01/20/18 11:30 Plt Count 240 K/uL (130-400) 01/20/18 11:30 MPV 7.5 fL (7.2-11.7) 01/20/18 11:30 Neut % (Auto) 62.4 % (50.0-75.0) 01/19/18 23:00 Lymph % (Auto) 19.5 % (20.0-40.0) L 01/19/18 23:00 [place] % (Auto) 15.1 % (0.0-10.0) H 01/19/18 23:00 Eos % (Auto) 1.7 % (0.0-4.0) 01/19/18 23:00 Baso % (Auto) 1.3 % (0.0-2.0) 01/19/18 23:00 Neut # (Auto) 4.5 K/uL (1.8-7.0) 01/19/18 23:00 Lymph # (Auto) 1.4 K/uL (1.0-4.3) 01/19/18 23:00 [place] # (Auto) 1.1 K/uL (0.0-0.8) H 01/19/18 23:00 Eos # (Auto) 0.1 K/uL (0.0-0.7) 01/19/18 23:00 Baso # (Auto) 0.1 K/uL (0.0-0.2) 01/19/18 23:00 PT 12.3 SECONDS (9.7-12.2) H 01/20/18 11:30 INR 1.1 01/20/18 11:30 APTT 30 SECONDS (21-34) 01/20/18 11:30 Sodium 142 mmol/L (132-148) 01/18/18 17:44 Potassium 4.0 mmol/L (3.6-5.2) 01/18/18 17:44 Chloride 102 mmol/L (98-107) 01/18/18 17:44 Carbon Dioxide 29 mmol/L (22-30) 01/18/18 17:44 Anion Gap 15 (10-20) 01/18/18 17:44 BUN 14 mg/dL (9-20) 01/18/18 17:44 Creatinine 0.7 mg/dL (0.8-1.5) L 01/18/18 17:44 Est GFR ( Amer) > 60 01/18/18 17:44 Est GFR (Non-Af Amer) > 60 01/18/18 17:44 Random Glucose 119 mg/dL (75-110) H 01/18/18 17:44 Calcium 9.6 mg/dl (8.6-10.4) 01/18/18 17:44 Total Bilirubin 1.7 mg/dL (0.2-1.3) H 01/18/18 17:44 AST 23 U/L (17-59) 01/18/18 17:44 ALT 26 U/L (21-72) 01/18/18 17:44 Alkaline Phosphatase 92 U/L (38-126) 01/18/18 17:44 Total Protein 7.1 g/dL (6.3-8.3) 01/18/18 17:44 Albumin 4.4 g/dL (3.5-5.0) 01/18/18 17:44 Globulin 2.7 gm/dL (2.2-3.9) 01/18/18 17:44 Albumin/Globulin Ratio 1.6 (1.0-2.1) 01/18/18 17:44 Urine Color Yellow (YELLOW) 01/20/18 22:34 Urine Clarity Clear (Clear) 01/20/18 22:34 Urine pH 6.0 (5.0-8.0) 01/20/18 22:34 Ur Specific [place] 1.016 (1.003-1.030) 01/20/18 22:34 Urine Protein Negative mg/dL (NEGATIVE) 01/20/18 22:34 Urine Glucose (UA) Normal mg/dL (Normal) 01/20/18 22:34 Urine Ketones Negative mg/dL (NEGATIVE) 01/20/18 22:34 Urine Blood Negative (NEGATIVE) 01/20/18 22:34 Urine Nitrate Negative (NEGATIVE) 01/20/18 22:34 Urine Bilirubin Negative (NEGATIVE) 01/20/18 22:34 Urine Urobilinogen Normal mg/dL (0.2-1.0) 01/20/18 22:34 Ur Leukocyte Esterase Neg [place]/uL (Negative) 01/20/18 22:34 Urine WBC (Auto) 1 /hpf (0-5) 01/20/18 22:34 Urine RBC (Auto) 1 /hpf (0-3) 01/20/18 22:34 Ur Squamous Epith Cells 1 /hpf (0-5) 01/20/18 22:34 Calcium Oxalate Crystal Rare /hpf (<OCC) 01/20/18 22:34 Urine Bacteria Occ (<OCC) H 01/20/18 22:34 Blood Type O POSITIVE 01/18/18 17:44 Antibody Screen Negative 01/18/18 17:44 - Hospital Course Hospital Course: 72 years ol male was brought by the family to the ED at [facility] because of a swollen and painful left wrist resulting from a fall at home the day before. Xray revealed a displaced and angulated fracture of left distal radius and ulna. Patient is known to have a cognitive disability, and a seizures disorders on Keppra 250 mg PO BID. He has not had seizures for a long time. The patient was evaluated by Dr Duncan and scheduled for surgery on 01/20/2018. He underwent an osteotomy of the left distal radius on 01/20/2018, with ORIF of the left displaced fracture of the left distal radius, a bone graft, a release of the left carpal tunnel and a left median nerve neurolysis. The patient did well and was discharged home on 01/21/2018 in a stable condition. He will resume all his home medications and have a follow up with Dr Duncan in a week. - Date & Time of H&P Date of H&P: 01/18/18 Discharge Exam - Head Exam Head Exam: NORMAL INSPECTION - Eye Exam Eye Exam: Normal appearance - ENT Exam ENT Exam: Normal Exam - Neck Exam Neck exam: Normal Inspection - Respiratory Exam Respiratory Exam: Clear to PA & Lateral, NORMAL BREATHING PATTERN, UNREMARKABLE - Cardiovascular Exam Cardiovascular Exam: REGULAR RHYTHM - GI/Abdominal Exam GI & Abdominal Exam: Normal Bowel Sounds, Soft, Unremarkable - Rectal Exam Rectal Exam: Deferred - Exam Exam: NORMAL INSPECTION - Extremities Exam Additional comments: Left wrist under a cast. - Back Exam Back exam: NORMAL INSPECTION - Neurological Exam Neurological exam: Alert, Normal Gait, Oriented x3 - Psychiatric Exam Psychiatric exam: Anxious - Skin Skin Exam: Dry, Intact, Normal Color, Warm Discharge Plan - Follow Up Plan Condition: STABLE Disposition: HOME/ ROUTINE Instructions: Elbow Fracture (DC), Forearm Fracture (DC), Radius Fracture (DC) , Open Reduction and Internal Fixation Surgery (DC), Managing Pain After Surgery Additional Instructions: Follow up with Dr. Duncan in one week. Referrals: Mesfin Duncan III, MD [Staff Provider] - Ruddy Smith MD [Staff Provider] -
== END 2018-01-21 13:19 | disposition home or self-care (01) | DRG 512 ==
LOC: C.ER 15:50 → C.9E 17:57 → C.6T 19:56
PROVIDERS: ADMIT Internal Medicine Cardiovascular Disease; ATTEND Internal Medicine Cardiovascular Disease
PROC: 0PSLXZZ Reposition Left Ulna, External Approach (ICD-10-PCS; 2018-01-20)
PROC: 0PSJ04Z Reposition Left Radius with Internal Fixation Device, Open Approach (ICD-10-PCS; principal; 2018-01-20 13:15)
PROC: 01N50ZZ Release Median Nerve, Open Approach (ICD-10-PCS; 2018-01-20 13:15)
DX: S52.502A Unspecified fracture of the lower end of left radius, initial encounter for closed fracture (principal); S52.602A Unspecified fracture of lower end of left ulna, initial encounter for closed fracture; W01.0XXA Fall on same level from slipping, tripping and stumbling without subsequent striking against object, initial encounter; G56.02 Carpal tunnel syndrome, left upper limb; S52.692A Other fracture of lower end of left ulna, initial encounter for closed fracture